=== PATIENT | female | born 1960 | race Caucasian/White ===

== ENCOUNTER 2017-10-27 12:29 | Emergency (ER) | payer BC, OTHER ==
[~2017-10-27] VITALS: Ht 165.1 cm; Wt 99.5 kg
[~2017-10-27 12:29] MED LIST: CALC-20 PO; MULT-506 PO
[2017-10-27 12:35] VITALS: TEMP 36.6; Ht 165.1 cm; Wt 99.5 kg
[2017-10-27 14:36] VITALS: BP 160/99; PULSE 57; O2SAT 97
--- NOTE | 2017-10-27 17:54 | EMERGENCY ROOM VISIT NOTE ---
History First contact with patient: 13:22 Chief Complaint: HEAD INJURY (MINOR) Stated Complaint: HIT ON HEAD W/BED FRAME, CUT ON R EAR History of Present Illness The patient is a 57 year old white female who presents to the Emergency Room with complaints of laceration on right ear after being struck in the head by a bed frame. She was helping her daughter move into her apartment. There was no loss of conscious. She states she did become woozy/dizzy and did lose her balance. No nausea or vomiting. She is worried about having a concussion. Her and daughter accompany her today. Patient denies any numbness or tingling. There was no change in personality. No confusion. Bleeding on the ear has stopped with pressure. She denies any neck pain. She has been ambulatory. There was a headache earlier but this has resolved. No other complaints. No other treatment. Review of Systems REVIEW OF SYSTEM: HEENT: No dizziness, visual problems, hearing loss, or tinnitus. There is no difficulty swallowing and no oral lesions are present. PULMONARY: No cough, shortness of breath, sputum production or hemoptysis. CARDIOVASCULAR: No chest pain, palpitations, shortness of breath or peripheral edema. GASTROINTESTINAL: No diarrhea, constipation, nausea, vomiting, or abdominal pain. GENITOURINARY: No dysuria, frequency, urgency or nocturia. NEUROLOGIC: No weakness, muscle tenderness, epilepsy or history of neurological problems. MUSCULOSKELETAL: No history of joint tenderness/swelling. No history of arthritis or arthralgias. SKIN: No rashes or lesions. PSYCHIATRIC: No history of depression or mental illness. ENDOCRINE: No history of diabetes, thyroid disorders, or abnormal hair growth. Past Medical/Surgical History Previous surgeries: Appendectomy age 14, in 1996, jaw surgery 1987, hysterectomy 2006 Medical history: Unremarkable. Benign. Family History Significant for diabetes, heart disease, hypertension, Alzheimer's disease. Father is . Social History Smoking Status: Never Smoker Smokeless Tobacco Use: No Alcohol Use: occasionally Drug Use: none Marital Status: Housing Status: lives with family Occupation Status: unemployed Current/Historical Medications Scheduled Calcium Carbonate-Vitamin D (Calcium 600 + D), 2 TABS PO DAILY Multivitamin (Multivitamin), 1 TAB PO DAILY Physical Exam Vital Signs Date Time Temp Pulse Resp B/P (MAP) Pulse Ox O2 Delivery O2 Flow Rate FiO2 10/27/17 14:36 57 18 160/99 97 Room Air 10/27/17 12:35 36.6 64 18 165/93 98 Physical Exam General: Well-developed, well-nourished, obese middle-aged white female, in no acute distress. Sitting on the bed. Alert and oriented. Skin: Warm and dry with good turgor. No rashes or lesions. No ecchymosis or erythema. The patient is not diaphoretic. No abrasions. Small laceration of 8 mm present in the pinna of the right ear. Bleeding is controlled. It is well approximated. HEENT: Normocephalic. Eyes PERRLA, EOMI. No conjunctiva or scleral injection. Ears TMs intact bilaterally with good light reflexes. No erythema or bulging. No hemotympanum. Canals are patent. Right pinna has the 8 mm laceration as stated. It is linear. Wound edges are well approximated. Bleeding is controlled and scab is in place. Nares patent bilaterally without turbinate enlargement. No significant drainage. No epistaxis. Oropharynx without erythema or exudate. Uvula midline, oral mucosa moist. No lesions present. Heart: Heart RRR. No MGR. Peripheral pulses are 2+. Lungs: Lungs are clear to auscultation. No crackles rhonchi or wheezing. Good air movement. The patient is able to take a deep breath. Abdomen: Abdomen was inspected, auscultated, and palpated. Obese. Bowel sounds present x 4. Soft, nontender to palpation. No hepato-splenomegaly. No masses noted. Musculoskeletal: Gross motor function of the upper and lower extremities is intact and unremarkable. No pain with palpation over the cervical spine or thoracic spine. Full range of motion of the neck. Neurologic: Cranial nerves II through XII are intact. Normal MMSE. Normal finger to nose, pronator drift, and single leg balance. Normal Romberg test. Gross sensation is intact across the upper and lower extremities by soft touch. DTRs are absent at both knees. This is her baseline according to the patient. Medical Decision & Procedures Procedure Right ear pinna was cleansed with sterile saline and sterile gauze. Wound edges were already well approximated. Dermabond was applied in several layers to stabilize the wound. Good wound edge approximation was achieved. Hemostasis was achieved. ED Course Patient was educated regarding today's findings. Conservative care measures were discussed. Given her physical exam findings, option of CT scan imaging of her head was discussed. I do not think it is required at this time. Patient is in agreement. She will return to the ED if symptoms worsen for further imaging. Tylenol and Motrin every 6 hours as needed for any mild discomfort. Her will keep an eye on her tonight. Likelihood for significant concussion is low. This was discussed. Follow-up with her PCP as needed. Dermabond will fall off on its own in 5-7 days. She may shower. Avoid scrubbing. Avoid triple antibiotic ointment. Watch for any signs of infection. Dermabond handout was provided. She should have her BP rechecked over the next week to see if it remains elevated. Medical Decision Possibility of skull fracture, intracranial bleed, concussion, contusion, and TM rupture were considered among others. Medication Reconcilliation Current Medication List: was personally reviewed by me Blood Pressure Screening Blood pressure disposition: Elevated BP felt to be situational Impression Primary Impression: Laceration of ear without complication Additional Impression: Closed head injury Departure Information Dispostion Home / Self-Care Condition GOOD Forms HOME CARE DOCUMENTATION FORM, MOTRIN USE, TYLENOL USE, IMPORTANT VISIT INFORMATION Patient Instructions My [facility], ED Laceration Ext Skin Glue Additional Instructions Dermabond will fall off on its own in 5-7 days Avoid scrubbing You may shower and wash your hair Keep the wound clean with soap and water Avoid antibiotic ointment on the ear. Return to the ED for any acute changes such as nausea, vomiting, increasing headache, altered personality, or confusion. Tylenol and Motrin every 6 hours as needed for any mild discomfort Problem Qualifiers Primary Impression: Laceration of ear without complication Encounter type: initial encounter Laterality: right Qualified Codes: S01.311A - Laceration without foreign body of right ear, initial encounter Additional Impression: Closed head injury Encounter type: initial encounter Qualified Codes: S09.90XA - Unspecified injury of head, initial encounter
== END 2017-10-27 14:39 | disposition home or self-care (01) ==
LOC: C.EDB 12:30 → C.EDD 14:39
DX: S09.90XA Unspecified injury of head, initial encounter (principal); S01.311A Laceration without foreign body of right ear, initial encounter; W22.8XXA Striking against or struck by other objects, initial encounter; Y93.E6 Activity, residential relocation; E66.9 Obesity, unspecified